=== PATIENT | male | born 1965 | race Caucasian/White ===

== ENCOUNTER 2020-09-03 17:06 | Emergency (ER) | payer BC, OTHER ==
[~2020-09-03] VITALS: Ht 185.4 cm; Wt 136.4 kg
[~2020-09-03 17:06] MED LIST: ASPI81TA35 PO; ASPI81TA61 PO; ATOR10TA87 PO; CARV3.122 PO; IRBE1TAB31 PO; NITR0.4T SL; TICA90TA2 PO
[2020-09-03 17:21] VITALS: BP 142/103
== END 2020-09-03 18:16 | disposition home or self-care (01) ==
LOC: ER 17:07
DX: M25.562 Pain in left knee (principal); M25.462 Effusion, left knee; E78.00 Pure hypercholesterolemia, unspecified; Z87.442 Personal history of urinary calculi; Z88.5 Allergy status to narcotic agent; Z79.82 Long term (current) use of aspirin; Z79.899 Other long term (current) drug therapy
CPT/HCPCS: 73564; 99284

== ENCOUNTER 2021-05-07 07:59 | Observation (INO) | payer BC ==
[~2021-05-07] VITALS: Ht 182.9 cm; Wt 140.9 kg
[2021-05-07 09:10] LABS: BASOPHILS # (AUTO) 0.1 X10'3 (0-0.2); BASOPHILS % (AUTO) 1.2 % (0-1); EOSINOPHILS # (AUTO) 0.2 X10'3 (0-0.9); EOSINOPHILS % (AUTO) 3.2 % (0-6); HEMATOCRIT 48.1 % (42.0-52.0); HEMOGLOBIN 16.1 g/dl (14.0-17.9); LYMPHOCYTES # (AUTO) 2.1 X10'3 (1.1-4.8); LYMPHOCYTES % (AUTO) 29.3 % (21-51); MEAN CORPUSCULAR HEMOGLOBIN 29.6 PG (27.0-31.0); MEAN CORPUSCULAR HGB CONC 33.4 g/dL (33.0-36.5); MEAN CORPUSCULAR VOLUME 88.5 FL (78-98); MEAN PLATELET VOLUME 10.6 FL (7.4-10.4); MONOCYTES # (AUTO) 0.7 X10'3 (0-0.9); MONOCYTES % (AUTO) 9.3 % (2-12); PLATELET COUNT 219 X10'3 (140-440); RED BLOOD COUNT 5.44 X10'6 (4.70-6.10); RED CELL DISTRIBUTION WIDTH 12.7 % (11.5-14.5); WHITE BLOOD COUNT 7.1 X10'3 (4.5-11.0)
[2021-05-07 09:33] LABS: ALANINE AMINOTRANSFERASE 74 U/L (12-78); ALBUMIN/GLOBULIN RATIO 1.1 (1.1-1.5); ALKALINE PHOSPHATASE 136 IU/L (46-116); ANION GAP 8 (8-16); ASPARTATE AMINO TRANSFERASE 41 U/L (10-37); BILIRUBIN,TOTAL 1.2 MG/DL (0.1-1.0); BLOOD UREA NITROGEN 21 MG/DL (7-18); CALCIUM 9.8 MG/DL (8.5-10.1); CHLORIDE 95 MMOL/L (99-107); CREATININE 1.61 MG/DL (0.60-1.10); POTASSIUM 4.1 MMOL/L (3.5-5.1); SODIUM 130 MMOL/L (135-145); TOTAL CARBON DIOXIDE 26.7 MMOL/L (24-32); TOTAL PROTEIN 7.6 G/DL (6.4-8.2); eGFR 45 ML/MIN
[2021-05-07 09:39] LABS: GLUCOSE 528 MG/DL (70-104)
[2021-05-07] MEDS ORDERED: ATOR40TA72 PO (10:14)
[2021-05-07] MEDS ORDERED: IRBE150T24 PO (10:14)
[2021-05-07] MEDS ORDERED: HYDR25TA4 PO (10:14)
[2021-05-07 10:19] LABS: GIANT PLATELET FEW; LARGE PLATELETS MODERATE; PLATELET ESTIMATE NORMAL
[2021-05-07] MEDS ORDERED: mag hydrox/Alum hydrox/simeth 30ml oral suspension PO PRN (10:30)
[2021-05-07] MEDS ORDERED: MESSAGE TO PHARMACY PO ONE (10:30)
[2021-05-07] MEDS ORDERED: acetaminophen 325mg tablet PO PRN ×2 (10:30)
[2021-05-07] MEDS ORDERED: HYDROcodone/acetaminophen 5mg/325mg tablet PO PRN (10:30)
[2021-05-07] MEDS ORDERED: HYDROcodone/acetaminophen 10/325mg tab PO PRN (10:30)
[2021-05-07] MEDS ORDERED: nitroGLYCERIN 0.4mg SUBLingual tab SL PRN (10:30)
[2021-05-07] MEDS ORDERED: morphine 2 MG/ML inj. syringe IV PRN ×2 (10:30)
[2021-05-07] MEDS ORDERED: magnesium hydroxide 30ml (MOM) UD suspension PO PRN (10:30)
[2021-05-07] MEDS ORDERED: ondansetron/PF 4mg/2ml inj IV PRN (10:30)
[2021-05-07] MEDS ORDERED: glucagon, human recombinant 1mg kit SUBCUT PRN (10:30)
[2021-05-07] MEDS ORDERED: dextrose 50%-water 50ml dispensing syringe IV PRN ×2 (10:30)
[2021-05-07] MEDS ORDERED: dextrose ORAL solution 15 GM/59 ML bottle PO PRN ×2 (10:30)
[2021-05-07 10:48] LABS: D-DIMER 0.23 MG/L FEU (0-0.50)
[2021-05-07 11:02] LABS: HEMOGLOBIN A1C 10.5 % (4.5-6.2)
[2021-05-07] MEDS: furosemide 20 MG/2 ML vial IV SCH ×2 (11:11→20:46)
[2021-05-07] MEDS: insulin Lispro (HumaLOG) vial - multi-dose SQ SCH ×2 (13:23→20:58)
[2021-05-07] MEDS: docusate sod 100mg capsule PO SCH (20:00)
[2021-05-07] MEDS ORDERED: insulin glargine (Lantus) pen - multi-dose SQ SCH (21:00)
--- NOTE | 2021-05-07 22:54 | NUR ---
pt moved to hospital bed.
[2021-05-08] VITALS (8 sets, daily range): BP systolic 85–147; BP diastolic 52–97
--- NOTE | 2021-05-08 | NUR ---
Lab at bedside, pt alert and oriented, no cp or signs of distress.
--- NOTE | 2021-05-08 02:00 | NUR ---
Pt. sleeping, RR even, in no distress.
[2021-05-08 02:40] LABS: BASOPHILS # (AUTO) 0.1 X10'3 (0-0.2); BASOPHILS % (AUTO) 1.2 % (0-1); EOSINOPHILS # (AUTO) 0.3 X10'3 (0-0.9); EOSINOPHILS % (AUTO) 3.5 % (0-6); HEMATOCRIT 48.8 % (42.0-52.0); HEMOGLOBIN 16.6 g/dl (14.0-17.9); LYMPHOCYTES # (AUTO) 2.5 X10'3 (1.1-4.8); LYMPHOCYTES % (AUTO) 32.7 % (21-51); MEAN CORPUSCULAR HEMOGLOBIN 29.8 PG (27.0-31.0); MEAN CORPUSCULAR VOLUME 87.7 FL (78-98); MEAN PLATELET VOLUME 9.8 FL (7.4-10.4); MONOCYTES # (AUTO) 0.8 X10'3 (0-0.9); MONOCYTES % (AUTO) 10.2 % (2-12); NEUTROPHILS # (AUTO) 4.1 X10'3 (1.8-7.7); NEUTROPHILS % (AUTO) 52.4 % (42-75); PLATELET COUNT 184 X10'3 (140-440); RED BLOOD COUNT 5.57 X10'6 (4.70-6.10); RED CELL DISTRIBUTION WIDTH 12.6 % (11.5-14.5); WHITE BLOOD COUNT 7.7 X10'3 (4.5-11.0)
[2021-05-08 02:50] LABS: ALBUMIN 3.6 G/DL (3.4-5.0); ANION GAP 10 (8-16); BLOOD UREA NITROGEN 19 MG/DL (7-18); BUN/CREATININE RATIO 14.7 (5.4-32.0); CALCIUM 9.4 MG/DL (8.5-10.1); CHLORIDE 99 MMOL/L (99-107); CREATININE 1.29 MG/DL (0.60-1.10); GLUCOSE 279 MG/DL (70-104); POTASSIUM 3.2 MMOL/L (3.5-5.1); SODIUM 137 MMOL/L (135-145); TOTAL CARBON DIOXIDE 28.2 MMOL/L (24-32); eGFR 58 ML/MIN
--- NOTE | 2021-05-08 04:04 | NUR ---
Pt laying supine, snoring, no distress.
[2021-05-08] MEDS ORDERED: regadenoson 0.4mg/5ml syringe IV PRN (07:20)
[2021-05-08] MEDS ORDERED: nitroGLYCERIN 0.4mg SUBLingual tab SL PRN (07:20)
[2021-05-08] MEDS ORDERED: aminophylline 250mg/10ml inj. IV PRN (07:20)
[2021-05-08] MEDS ORDERED: metoprolol tartrate 1mg/ml inj IV PRN (07:20)
[2021-05-08] MEDS ORDERED: enoxaparin 40mg/0.4ml syringe SUBCUT SCH (08:00)
[2021-05-08] MEDS ORDERED: aspirin 81mg tab.chew PO SCH (08:00)
[2021-05-08] MEDS ORDERED: aspirin 81mg tablet.DR PO SCH (08:00)
[2021-05-08] MEDS ORDERED: losartan 50mg tablet PO SCH (08:00)
[2021-05-08] MEDS ORDERED: HYDROchlorothiazide 25mg tablet PO SCH (08:00)
[2021-05-08] MEDS ORDERED: atorvastatin 20mg tablet PO SCH (08:00)
[2021-05-08] MEDS: docusate sod 100mg capsule PO SCH (08:56)
[2021-05-08] MEDS: furosemide 20 MG/2 ML vial IV SCH (08:56)
--- NOTE | 2021-05-08 11:09 | NUR ---
Patient in room ED 1. I have received report from Moy SORIANO and had the opportunity to ask questions and assume patient care.
--- NOTE | 2021-05-08 11:36 | NUR ---
Pt arrived to unit via wheelchair at 1120. pt verbal, alert and oriented. pt verbalizing to desire to discharge home. Extensive diabetic teaching competed with patient due to new onset diabetes. pt education related to disease process, risk for DKA, DKA in general and stress tests. Pt NPO currently and in agreement. william at bedside. breathing even and non labored.
[2021-05-08] MEDS ORDERED: FURO-150 PO (12:32)
[2021-05-08] MEDS: insulin Lispro (HumaLOG) vial - multi-dose SQ SCH ×2 (13:25→17:25)
[2021-05-08] MEDS ORDERED: normal saline 1000ml 1,000 ML IV SCH (13:30)
--- NOTE | 2021-05-08 14:01 | NUR ---
Called the beauty sales advisor Jesus to come and educate patient on new onset diabetes. He agreed to come up and talk to patient .
--- NOTE | 2021-05-08 14:53 | NUR ---
CHRISTIE TC: Pt admit DX new onset DM A1C 10.5 and pt has been notified by of DX requesting RD visit for DM ed. Pt admit w/ CP found to have GLU 571 currently down to 343 on glycemic protocol. Pt/SO seen by RD for thorough written/verbal DM ed w/ RD contact information provided. RD reviewed importance of hydration, proteins, protein containing foods, carb containing foods, types of carbs, carb counting, nutrition facts label reading, and signs of high/low GLU. RD encouraged pt/SO to contact dietitian's office if further questions/concerns. Pt PO pending on heart healthy/carb controlled diet this admit. Will continue to monitor. Rec: 1. continue carb controlled/heart healthy diet 2. monitor for PO trends; if PO 100% meals consider additional proteins for satiety 3. routine bowel care 4. scaled wt this admit; subsequent weekly wts Addendum: 05/08/21 at [address] Amended: Links added.
--- NOTE | 2021-05-08 15:07 | NUR ---
Pt rhythm changed to bigeminal PACs. Dr. Tubbs paged to notify. PAGER ID: [phone] MESSAGE: RE: Asher Teja: [id number]: Pt arrive with occasional PAC, this changed to bigeminal PAC's at about 1400. pt with episode HR in 40's (however pt was sleeping). -Renae #[id number]
[2021-05-08] MEDS ORDERED: insulin glargine (Lantus) pen - multi-dose SQ ONE (16:10)
--- NOTE | 2021-05-08 17:35 | NUR ---
Pt stable for discharge per MD orders. All discharge instructions reviewed with patient and all questions answered. Follow up appointment for tomorrow originally with Dr. Mix, but new appointment made with dr. prince at 0915. New Rx escripted to Mariela on [facility] in [place]. PIV discontinued. cannula intact. telemetry discontinued. Belongings collected. pt ambulated with and this nurse to [facility] where he left in private vehicle. pt left without s/sx acute distress
== END 2021-05-08 17:30 | disposition home or self-care (01) ==
LOC: ER 08:00 → ED HOLD 10:26 → PCU 3S 05-08 11:20
PROVIDERS: ADMIT Internal Medicine; ATTEND Internal Medicine
DX: R07.89 Other chest pain (principal); E11.65 Type 2 diabetes mellitus with hyperglycemia; E78.00 Pure hypercholesterolemia, unspecified; I10 Essential (primary) hypertension; I25.110 Atherosclerotic heart disease of native coronary artery with unstable angina pectoris; J44.9 Chronic obstructive pulmonary disease, unspecified; E66.01 Morbid (severe) obesity due to excess calories; Z79.82 Long term (current) use of aspirin; Z79.899 Other long term (current) drug therapy; Z88.5 Allergy status to narcotic agent; Z95.1 Presence of aortocoronary bypass graft; Z95.5 Presence of coronary angioplasty implant and graft; Z68.41 Body mass index [BMI] 40.0-44.9, adult
CPT/HCPCS: 36415; 71045; 78452; 80048; 80053; 82948; 83036; 83880; 84484; 85008; 85025; 85379; 87081; 93005; 93017; 93306; 96361; 96372; 96374; 96376; 99285; A9500; G0378; J1815; J1940; J2785; J7030; J1650

== ENCOUNTER 2021-05-10 19:23 | Emergency (ER) | payer BC ==
[~2021-05-10] VITALS: Ht 182.9 cm; Wt 138.2 kg
[~2021-05-10 19:23] MED LIST changes: -ASPI81TA35 PO; -ATOR10TA87 PO; +ATOR40TA72 PO; -CARV3.122 PO; +FURO-150 PO; +HYDR25TA4 PO; +IRBE150T24 PO; -IRBE1TAB31 PO; -NITR0.4T SL; -TICA90TA2 PO
[2021-05-10] MEDS ORDERED: normal saline 1000ml 1,000 ML IV ONE ×2 (20:10→21:15)
[2021-05-10 20:23] LABS: ALANINE AMINOTRANSFERASE 94 U/L (12-78); ALBUMIN 3.7 G/DL (3.4-5.0); ALKALINE PHOSPHATASE 98 IU/L (46-116); ANION GAP 10 (8-16); ASPARTATE AMINO TRANSFERASE 56 U/L (10-37); BILIRUBIN,TOTAL 1.4 MG/DL (0.1-1.0); BLOOD UREA NITROGEN 23 MG/DL (7-18); BUN/CREATININE RATIO 15.4 (5.4-32.0); CALCIUM 8.7 MG/DL (8.5-10.1); CHLORIDE 91 MMOL/L (99-107); CREATININE 1.49 MG/DL (0.60-1.10); GLUCOSE 322 MG/DL (70-104); POTASSIUM 3.7 MMOL/L (3.5-5.1); SODIUM 128 MMOL/L (135-145); TOTAL CARBON DIOXIDE 27.5 MMOL/L (24-32); TOTAL PROTEIN 7.3 G/DL (6.4-8.2); eGFR 49 ML/MIN
[2021-05-10 20:24] LABS: BASOPHILS # (AUTO) 0.1 X10'3 (0-0.2); BASOPHILS % (AUTO) 0.7 % (0-1); EOSINOPHILS # (AUTO) 0.1 X10'3 (0-0.9); EOSINOPHILS % (AUTO) 0.8 % (0-6); HEMATOCRIT 47.3 % (42.0-52.0); HEMOGLOBIN 16.1 g/dl (14.0-17.9); LYMPHOCYTES # (AUTO) 0.6 X10'3 (1.1-4.8); LYMPHOCYTES % (AUTO) 7.7 % (21-51); MEAN CORPUSCULAR HGB CONC 34.1 g/dL (33.0-36.5); MEAN PLATELET VOLUME 10.2 FL (7.4-10.4); MONOCYTES # (AUTO) 1.2 X10'3 (0-0.9); MONOCYTES % (AUTO) 15.1 % (2-12); NEUTROPHILS # (AUTO) 5.8 X10'3 (1.8-7.7); NEUTROPHILS % (AUTO) 75.7 % (42-75); PLATELET COUNT 198 X10'3 (140-440); RED BLOOD COUNT 5.38 X10'6 (4.70-6.10); RED CELL DISTRIBUTION WIDTH 12.5 % (11.5-14.5); WHITE BLOOD COUNT 7.7 X10'3 (4.5-11.0)
[2021-05-10 21:30] LABS: TROPONIN I < 0.04 NG/ML (0.0-0.05)
[2021-05-10] MEDS ORDERED: albuterol 2.5 MG/3 ML nebule NEB ONE (22:10)
--- NOTE | 2021-05-10 22:47 | NUR ---
Dr. Blevins informed RT not able to do SVN tx in COVID patients.
[2021-05-10] MEDS ORDERED: ALBU8HFA PO (22:52)
[2021-05-10 22:53] VITALS: BP 130/78
== END 2021-05-10 23:10 | disposition home or self-care (01) ==
LOC: ER 19:24
DX: U07.1 COVID-19 (principal); E11.65 Type 2 diabetes mellitus with hyperglycemia; E78.00 Pure hypercholesterolemia, unspecified; I11.9 Hypertensive heart disease without heart failure; Z87.448 Personal history of other diseases of urinary system; Z88.5 Allergy status to narcotic agent; Z79.899 Other long term (current) drug therapy
CPT/HCPCS: 36415; 71045; 80053; 82948; 84484; 85025; 87635; 93005; 96360; 96361; 99285; C9803; J7030

== ENCOUNTER 2021-05-13 06:43 | Emergency (ER) | payer BC ==
[~2021-05-13 06:43] MED LIST changes: +ALBU8HFA PO; +ASPI81TA35 PO; +ATOR10TA87 PO; +CARV3.122 PO; +IRBE1TAB31 PO; +NITR0.4T SL; +TICA90TA2 PO
--- NOTE | 2021-05-13 06:49 | NUR ---
WIFES #[phone] Addendum: 05/13/21 at 0649 by MANDY SATHISH ALLEN [phone]
--- NOTE | 2021-05-13 07:21 | NUR ---
PT. OUTSIDE ON A GURNEY WITH EMS. PT. IS UN-HAPPY. PULLED HIS IV OUT OF HIS ARM. EMS OBSERVED CATH INTACT... EMS DRESSED IV SITE. PT. GOT OFF [facility] AND AMBULATED TO HIS BROTHERS CAR. THEY STATED THEY WERE GOING TO [facility] BY PRIVATE CAR. I CALLED [facility]'S CHARGE NURSE AND LET THEM KNOW.
== END 2021-05-13 07:28 | disposition left against medical advice (07) ==
LOC: ER 06:44
DX: N23 Unspecified renal colic (principal); Z53.21 Procedure and treatment not carried out due to patient leaving prior to being seen by health care provider